=== PATIENT | female | born 1970 | race Caucasian/White ===

== ENCOUNTER 2020-03-30 15:40 | Emergency (ER) | payer BC ==
--- OUTSIDE RECORDS SUMMARY | 2020-03-30 15:42 | XMS REPORT | Clinical Summary ---
:1970 Author Organization [facility] Address [address] [place] [id number] Care Team Providers Name Role Phone Asked, No Pcp Primary Care Provider Unavailable Allergies Active Allergy Reactions Severity Noted Date Comments Sulfa (Sulfonamide Antibiotics) Rash High 1 Medications Medication Sig Dispensed Refills Start Date End Date Status lisinopriL-hydrochlorothiazide 0 1 Active (PRINZIDE) 20-12.5 mg per tablet Active Problems Problem Noted Date Lightheadedness 03/22/2020 Palpitation 03/22/2020 Encounters Date Type Specialty Care Team Description 03/22/2020 Office Visit Cardiology Yusuf Tate MD Lighthea dedness (Primary Dx); Palpitation 03/22/2020 Travel 03/14/2020 Travel after 03/30/2019 Medical History Medical History Date Comments Hypertension Family History Medical History Relation Name Comments Coronary artery disease Father Relation Name Status Comments Father Social History Tobacco Use Types Packs/Day Years Used Date Never Smoker Smokeless Tobacco: Never Used Alcohol Use Drinks/Week oz/Week Comments Not Currently Sex Assigned at Date Recorded Not on file COVID-19 Exposure Response Date Recorded In the last month, have you been in contact with No / Unsure 03/22/2020 1:47 PM 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 Last Filed Vital Signs Vital Sign Reading Time Taken Comments Blood Pressure 142/81 03/22/2020 2:00 PM TILE FINISHER Pulse 77 03/22/2020 2:00 PM TILE FINISHER Temperature - - Respiratory Rate - - Oxygen Saturation - - Inhaled Oxygen Concentration - - Weight 101 kg (223 lb) 03/22/2020 2:00 PM TILE FINISHER Height 170.2 cm (5' 7") 03/22/2020 2:00 PM TILE FINISHER Body Mass Index 34.93 03/22/2020 2:00 PM TILE FINISHER Plan of Treatment Health Maintenance Due Date Last Done Comments COVID-19 VACCINE (1 of 2) 1984 CERVICAL CANCER SCREENING 01/20/1989 BREAST CANCER SCREENING 01/20/2018 COLONOSCOPY SCREENING 01/20/2018 SHINGLES VACCINES (#1) 01/20/2018 INFLUENZA VACCINE 10/17/2019 Procedures Procedure Name Priority Date/Time Associated Diagnosis Comme nts ECG 12-LEAD Routine 03/22/2020 2:09 PM Lightheadedness Resul ts for this TILE FINISHER procedure are i n the results section . after 03/30/2019 Results ECG 12 lead (03/22/2020 2:09 PM TILE FINISHER) Pathologist Sig nature Ventricular rate 71 [facility] Atrial rate 71 [facility] CA interval 180 [facility] QRSD interval 86 [facility] QT interval 358 [facility] QTC interval 389 [facility] P axis 1 62 [facility] QRS axis 1 91 [facility] T wave axis 51 [facility] EKG impression Normal sinus [facility] rhythm- Specimen Narrative Performed At This result has an attachment that is no t available. Performing Organization Address City/State/ZIP Code Phon e Number [facility] M[facility] [address] [place] [address] after 03/30/2019 Advance Directives For more information, please contact: [phone] Type Date Recorded Patient Safety Council Director Explanati on Advance Directives, Living Will and Medical Power of Bridge Engineer
--- OUTSIDE RECORDS SUMMARY | 2020-03-30 15:42 | XMS REPORT | Continuity of Care Document ---
:1970 Author Organization [facility] Address [address] [place] [address] Care Team Providers Name Role Phone Asked, Pcp Primary Care Physician Unavailable Lu Prince DO Attending Clinician Colton Tate MD Attending Clinician Briseyda CONN Attending Clinician Payers Payer Name Policy Type Policy Effective Date Expiration Date Sour ce Number BCBSBCBS CHOICE [id number] 2019 [place] PPO/FEDERAL 00:00:00 [place] [employer] [id number] 2019-Presen tPPO Problems Condition Condition Condition Status Onset Resolution Last Treating Co mments Source Name Details Category Date Date Treatment Clinician Date Lightheade Lightheade Disease Active H shanda dness dness 05 [facility] 00:00: st 00 Palpitatio Palpitatio Disease Active H shanda n n -05 [facility] 00:00: st 00 Allergies, Adverse Reactions, Alerts Allergy Allergy Status Severity Reaction(s) Onset Inactive Treating Comm ents Source Name Type Date Date Clinician Sulfa Propensi Active Rash [place] (Sulfona ty to 05 [facility]i mide adverse 00:00: st Antibiot reaction 00 ics) s to drug Family History Family Member Diagnosis Comments Start Date Stop Date Source Natural father Coronary artery [place] [facility] disease Social History Social Habit Start Date Stop Date Quantity Comments Source Sex Assigned At [place] M ethodist Exposure to Not sure [place] Metho dist SARS-CoV-2 (event) Tobacco use and 2020-03-22 2020-03-22 Never used See [place] ethodist exposure 00:00:00 00:00:00 Alcohol intake 2020-03-22 2020-03-22 Ex-drinker [facility] thodist 00:00:00 00:00:00 (finding) Smoking Status Start Date Stop Date Source Never smoker See Childressis t Medications Ordered Filled Start Stop Current Ordering Indication Dosage Frequency Signature Comments Components Source Medication Medication Date Date Medication? Clinician (SIG) Name Name lisinopriL- Yes Anandto n hydrochloro 1-03 [facility] thiazide 00:00: st (PRINZIDE) 00 20-12.5 mg per tablet Vital Signs Vital Name Observation Time Observation Value Comments Source Systolic blood 2020-03-22 14:00:00 142 mm[Hg] [place] [facility] pressure Diastolic blood 2020-03-22 14:00:00 81 mm[Hg] [place] [facility] pressure Heart rate 2020-03-22 14:00:00 77 /min [facility] Body height 2020-03-22 14:00:00 170.2 cm [place] [facility] Body weight 2020-03-22 14:00:00 101.152 kg [place] [facility] BMI 2020-03-22 14:00:00 34.93 kg/m2 [place] [facility] Procedures Procedure Date / Time Performed Performing Clinician Chantal lozada ECG 12-LEAD 2020-03-22 14:09:45 Yusuf Tate odbisi Plan of Care Planned Activity Planned Date Details Comments Source Future Scheduled 2019-10-17 INFLUENZA VACCINE [place] [facility] Test 00:00:00 [code = INFLUENZA VACCINE] Future Scheduled 2018-01-20 BREAST CANCER [facility] thodist Test 00:00:00 SCREENING [code = BREAST CANCER SCREENING] Future Scheduled 2018-01-20 COLONOSCOPY SCREENING [facility] Test 00:00:00 [code = COLONOSCOPY SCREENING] Future Scheduled 2018-01-20 SHINGLES VACCINES [place] [facility] Test 00:00:00 (#1) [code = SHINGLES VACCINES (#1)] Future Scheduled 1989-01-20 Screening for [facility] thodist Test 00:00:00 malignant neoplasm of cervix (procedure) [code = 109977642] Future Scheduled 1984 COVID-19 VACCINE ([place] [facility] Test 00:00:00 of 2) [code = COVID-19 VACCINE (1 of 2)] Encounters Start End Encounter Admission Attending Care Care Encounter Source Date/Time Date/Time Type Type Clinicians Facility Department ID 2020-03-25 2020-03-26 Emergency S[facility] [id number] 23:11:00 00:43:00 Addis Gold [id number] [place] [id number] [place] [id number] 2020-03-22 2020-03-22 Outpatient [facility] [id number] [place] 00:00:00 00:00:00 YUSUF Bauer [facility] 2020-03-10 2020-03-10 Emergency [facility] [id number] 21:24:00 23:43:00 Charlie Gold [id number] [place] [id number] [place] [id number] Results Test Description Test Time Test Comments Results Result Comments Source ECG 12 lead 2020-03-22 22:59:11 Test Item Value Reference Range Interpretation Comme nts Ventricular rate (test code = 253) 71 Atrial rate (test code = 255) 71 IN interval (test code = 266) 180 QRSD interval (test code = 260) 86 QT interval (test code = 264) 358 QTC interval (test code = 265) 389 P axis 1 (test code = 267) 62 QRS axis 1 (test code = 268) 91 T wave axis (test code = 270) 51 EKG impression (test code = 273) Normal sinus rhythm- See Antony
--- OUTSIDE RECORDS SUMMARY | 2020-03-30 15:42 | XMS REPORT | Summary of Care ---
:1970 Author Organization [facility] - [facility] Address [address] [place] [id number] Care Team Providers Name Role Phone Pipo Galarza DO Primary Care Provider Reason for Visit Reason Comments Dizziness "shakiness" Palpitations Nausea decreased apitite Numbness left arm Encounter Details Date Type Department Care Team Description 03/25/2020 - Emergency ADC-Emergency Addis Prince Lighthe aded (Primary 03/26/2020 Department DO Dx) [address] [place] [address] [place] [address] [phone] Allergies Active Allergy Reactions Severity Noted Date Comments Sulfa (Sulfonamide Antibiotics) Hives Medium documented as of this encounter (statuses as of 03/26/2020) Medications Medication Sig Dispensed Refills Start Date End Date Status lisinopriL 20 mg tablet Take 20 mg by 0 Active mouth daily. documented as of this encounter (statuses as of 03/26/2020) Active Problems No known active problemsdocumented as of this encounter (statuses as of 03/26/2020) Social History Tobacco Use Types Packs/Day Years Used Date Never Assessed Sex Assigned at Date Recorded Not on file COVID-19 Exposure Response Date Recorded In the last month, have you been in contact with No / Unsure 03/25/2020 10:41 PM CHAIN HOIST OPERATOR someone who was confirmed or suspected to have Coronavirus / COVID-19? documented as of this encounter Last Filed Vital Signs Vital Sign Reading Time Taken Comments Blood Pressure 114/78 03/26/2020 12:38 AM CHAIN HOIST OPERATOR Pulse 71 03/26/2020 12:38 AM CHAIN HOIST OPERATOR Temperature 36.2 C (97.1 F) 03/26/2020 12:38 AM CHAIN HOIST OPERATOR Respiratory Rate 18 03/26/2020 12:38 AM CHAIN HOIST OPERATOR Oxygen Saturation 98% 03/26/2020 12:38 AM CHAIN HOIST OPERATOR Inhaled Oxygen Concentration - - Weight 99.8 kg (220 lb) 03/25/2020 10:47 PM CHAIN HOIST OPERATOR Height 170.2 cm (5' 7") 03/25/2020 10:47 PM CHAIN HOIST OPERATOR Body Mass Index 34.46 03/25/2020 10:47 PM CHAIN HOIST OPERATOR documented in this encounter Discharge Instructions Addis Harris, - 1DIAGNOSIS 1. Lightheaded NO LIFE-THREATENING FINDINGS ON TODAY'S EXAM. PROCEDURES IN THE ER TODAY: Blood work MEDICATIONS ADMINISTERED IN THE ER TODAY: IV fluids YOUR PRESCRIPTIONS AND [id number] MEDICATION RECOMMENDATIONS: Please stop your steroids as they may be a cause of your symptoms. SPECIAL CARE INSTRUCTIONS: You will need to follow-up with your PCP next week. FOLLOW-UP RECOMMENDATIONS: RECOMMEND FOLLOW-UP WITH A PRIMARY CARE PROVIDER OR SPECIALIST IN 2-5 DAYS, ESPECIALLY IF NO IMPROVEMENT IN SYMPTOMS. TO FOLLOW-UP WITHIN THE [facility], TRY THESE OPTIONS (CLINIC APPOINTMENTS AVAILABLE ON LRSE-BX-AESS BASIS): 1. SCHEDULE AN APPOINTMENT ONLINE AT [email or web address] 2. OR CALL THE [facility] AT OR 3. OR CALL YOUR [facility] PHYSICIAN'S OFFICE DIRECTLY IF YOU ARE ALREADY AN ESTABLISHED [facility] PATIENT. OR, YOU MAY FOLLOW-UP WITH A PROVIDER OF YOUR CHOICE, SUCH : 1. A PHYSICIAN OF YOUR CHOICE 2. [facility], . LOCATIONS IN [facility] 3. [facility], [address], [place]; [phone] RETURN TO ER FOR WORSENING OF SYMPTOMS. AttachmentsThe following attachments cannot be sent through Care Everywhere. Dizziness, Uncertain Cause (Belarusian)documented in this encounter ED Notes Coral Rao RN - 03/26/2020 12:04 AM CST Patient resting comfortably at this time awaiting provider re-eval and plan. Report given to Arnulfo Young RN Vitals: 03/25/20 2247 03/26/20 0001 BP: (!) 136/94 125/85 Pulse: 74 69 Resp: 18 20 Temp: 37.1 C (98.7 F) TempSrc: Oral SpO2: 98% 98% Weight: 99.8 kg (220 lb) Height: 1.702 m (5' 7") Coral Cadena RN - 03/25/2020 10:41 PM CSTPatient with dizziness, palpitations, nausea, decreased apetitie, feeling like she might pass out, and intermittent left arm numbness for about 3 weeks. She was initially seen here with a negative workup and told to follow-up with [facility] which she did & they stated everything looked good. Got covid tested earlier this week just to check and got negative results yesterday but dx with a sinus infection given steroid shot, course of steroids to take at home, and a Z-park yesterday. She is coming in tonight because symptoms have been worse today than they have been the entire 3 weeks and she feels like she might pass out. 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 Has had this feeling on and off since before marly. Seen 03/10 for the same and went home. Did f/u with cardiology and no cause found. No cp or sob. No cough or URI sx. Did have some facial pressure/congestion and seen by her PCP yesterday and given steroid and antibiotic shot and went home with rx for same for sinusitis. States feels worse today. No sinus pressure/congestion today. Has h/o htn. No h/o lipids or dm. Does not smoke. Nausea but no vomiting. Has been able to eat. Had a negative covid test the other day at OSH. No sick contacts. Here for eval. Past Medical History/Immunizations: History reviewed. No pertinent past medical history. Tetanus received in last 5 years: Unknown Allergies: Allergies Allergen Reactions Sulfa (Sulfonamide Antibiotics) Hives Past Social History: Substance & Sexual Activity No substance use or sexual activity history on file. Past Surgical History: History reviewed. No pertinent surgical history. Review of Systems: Review of Systems Constitutional: Negative for chills and fever. Respiratory: Negative for cough and shortness of breath. Cardiovascular: Negative for chest pain. Gastrointestinal: Positive for nausea. Negative for abdominal pain and vomiting. Genitourinary: Negative for dysuria. Musculoskeletal: Negative for arthralgias, neck pain and neck stiffness. Skin: Negative for wound. Neurological: Positive for light-headedness. Negative for dizziness. Psychiatric/Behavioral: Negative for agitation. Physical Exam: ED Triage Vitals [03/25/207] Weight 99.8 kg (220 lb) Actual or estimated Estimated by patient/family report Height 1.702 m (5' 7") BP (!) 136/94 Pulse 74 Resp 18 Temp 37.1 C (98.7 F) Temp source Oral SpO2 98 % Measured on Room air Physical Exam Vitals signs and nursing note reviewed. Constitutional: Appearance: Normal appearance. HENT: Head: Normocephalic and atraumatic. Mouth/Throat: Mouth: Mucous membranes are dry. Neck: Musculoskeletal: Neck supple. Cardiovascular: Rate and Rhythm: Normal rate and regular rhythm. Pulmonary: Effort: Pulmonary effort is normal. No respiratory distress. Abdominal: General: There is no distension. Palpations: Abdomen is soft. There is no mass. Tenderness: There is no abdominal tenderness. There is no guarding. Musculoskeletal: Normal range of motion. Skin: General: Skin is warm and dry. Neurological: General: No focal deficit present. Mental Status: She is alert and oriented to person, place, and time. 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 Lab Results (24h): Recent Results (from the past 24 hour(s)) CBC with Differential Collection Time: 03/25/20 11:17 PM Result Value Ref Range WBC 11.36 (H) 4.30 - 11.10 10*3/L RBC 5.00 3.93 - 5.25 10*6/L HGB 12.9 11.6 - 15.0 g/dL HCT 40.3 35.7 - 45.2 % MCV 80.6 80.6 - 95.5 fL MCH 25.8 (L) 25.9 - 32.8 pg MCHC 32.0 31.6 - 35.1 g/dL RDW-SD 39.8 39.0 - 49.9 fL RDW-CV 13.6 12.0 - 15.5 % PLT 285 166 - 358 10*3/L MPV 10.5 9.5 - 12.9 fL NRBC/100 WBC 0.0 0.0 - 10.0 /100 WBCs NRBC x10^3 <0.01 10*3/L GRAN MAT (NEUT) % 77.5 % IMM GRAN % 0.40 % LYMPH % 16.3 % MONO % 5.2 % EOS % 0.2 % BASO % 0.4 % GRAN MAT x10^3(ANC) 8.81 (H) 1.88 - 7.09 10*3/uL IMM GRAN x10^3 0.05 0.00 - 0.06 10*3/uL LYMPH x10^3 1.85 1.32 - 3.29 10*3/uL MONO x10^3 0.59 0.33 - 0.92 10*3/uL EOS x10^3 <0.03 (L) 0.03 - 0.39 10*3/uL BASO x10^3 0.04 0.01 - 0.07 10*3/uL Basic Metabolic Panel (NA, K, CL, CO2, GLUCOSE, BUN, CREATININE, CA) Collection Time: 03/25/20 11:17 PM Result Value Ref Range NA 135 135 - 145 mmol/L K 4.1 3.5 - 5.0 mmol/L CL 101 98 - 108 mmol/L CO2 TOTAL 23 23 - 31 mmol/L AGAP 11 2 - 16 BUN 24 (H) 7 - 23 mg/dL GLUCOSE 154 (H) 70 - 110 mg/dL CREATININE 0.80 0.50 - 1.04 mg/dL CALCIUM 9.5 8.6 - 10.6 mg/dL eGFR Calculation (Non-) 75.3 mL/min/1.73m2 eGFR Calculation () 91.3 mL/min/1.73m2 Hepatic Function Panel (ALB, T.PRO, BILI T, BU/BC, ALT, AST, ALK PHOS) Collection Time: 03/25/20 11:17 PM Result Value Ref Range TOTAL BILI 0.6 0.1 - 1.1 mg/dL BILI UNCON 0.5 0.1 - 1.1 mg/dL BILI CONJ 0.0 0.0 - 0.3 mg/dL T PROTEIN 7.2 6.3 - 8.2 g/dL ALBUMIN 4.5 3.5 - 5.0 g/dL ALK PHOS 52 34 - 122 U/L ALTv 19 5 - 35 U/L AST(SGOT) 21 13 - 40 U/L Troponin I Collection Time: 03/25/20 11:17 PM Result Value Ref Range TROPONIN I <0.012 <=0.034 ng/mL MAGNESIUM Collection Time: 03/25/20 11:17 PM Result Value Ref Range MAGNESIUM 2.2 1.7 - 2.4 mg/dL Orders and Treatments: Orders Placed This Encounter Procedures CBC with Differential Basic Metabolic Panel (NA, K, CL, CO2, GLUCOSE, BUN, CREATININE, CA) Hepatic Function Panel (ALB, T.PRO, BILI T, BU/BC, ALT, AST, ALK PHOS) Troponin I MAGNESIUM Orders Placed This Encounter Medications lisinopriL 20 mg tablet NaCl 0.9% (NS) bolus infusion 1,000 mL ED COURSE patient presents for eval for feeling lightheaded on and off since before marly. States worse today. Started on antibiotics and steroids for a sinus infection yesterday. No vomiting. Some nausea. No abd pain. No cp or sob. No syncope. Sx can occur while sitting or standing. VSS here in the EC. Dry MM. Abdomen soft and not tender. No focal neuro deficits. Will check labs and give IV fluids. Had normal TSH when seen here on 03/10. Anticipate discharge home later on. 0030 - labs ok. Patient feeling maybe a little better. Is able to get up and ambulate around the room. She is newly on steroids for a sinus infection. Recommend she stop the steroids and f/u with her PCP next week. Stable here in the EC and is ok for discharge home with PCP f/u. MDM: Coding Scoring Tools: No data recorded Diagnosis/Impression: ICD-10-CM ICD-9-CM 1. Lightheaded R42 780.4 Disposition/Condition: ED Disposition ED Disposition Condition Comment Disch - Home Stable Discharge Medications: Patient's Medications START taking these medications No medications on file CONTINUE taking these medications which have NOT CHANGED LISINOPRIL 20 MG TABLET Take 20 mg by mouth daily. START taking Modified Medications as Prescribed No medications on file STOP taking these medications No medications on file Follow-up: Electronically signed by: Addis Prince DO 03/25/2020 11:14 PM N HOIST OPERATOR documented in this encounter Miscellaneous Notes ED Nurse Note - Verito Young RN - 03/26/2020 12:42 AM CHAIN HOIST OPERATOR Awake, alert oriented X4, respiratory even and unlabored,skin w/d color appropriate for race, movesall ext well, pt encouraged to follow up with pcp and or return as needed Pt given printed and verbal discharge instructions regarding Lightheaded , patient verbralized understanding and signature obtained, patient denies any other concerns. Advised to seek medical attention for new/prolonged/worsening of symptoms, No adverse reaction to meds given in ER noted upon discharge Pt ambulated to the lobby with steady gait documented in this encounter Plan of Treatment Health Maintenance Due Date Last Done Comments Depression Screening 1980 DTaP,Tdap,and Td Vaccines (1 - 01/20/1987 Tdap) PAP SMEAR 01/20/1989 Breast Cancer Screening (MAMMOGRAM) 2008 COLON CANCER SCREENING ANNUAL 01/20/2018 FIT/FOBT COLON CANCER SCREENING FIT DNA 01/20/2018 EVERY 3 YEARS COLON CANCER SCREENING 01/20/2018 SIGMOIDOSCOPY EVERY 5 YEARS COLONOSCOPY 01/20/2018 Colorectal Cancer Screening 01/20/2018 Zoster Recombinant Vaccine 01/20/2018 (SHINGRIX) (1 of 2) INFLUENZA VACCINE (#1) 2019 PNEUMOCOCCAL 0-64 YEARS COMBINED Aged Out No longer eligible based on SERIES patient's age to complete this topic documented as of this encounter Procedures Procedure Name Priority Date/Time Associated Diagnosis Comme nts CBC WITH DIFF STAT 03/25/2020 11:17 PM Lightheaded Results for this CHAIN HOIST OPERATOR procedure are i n the results section. BASIC METABOLIC STAT 03/25/2020 11:17 PM Lightheaded Resul ts for this PANEL (NA, K, CL, CHAIN HOIST OPERATOR procedure are in CO2, GLUCOSE, BUN, the resul ts CREATININE, CA) section. HEPATIC FUNCTION STAT 03/25/2020 11:17 PM Lightheaded Resu lts for this PANEL ([id number]) CHAIN HOIST OPERATOR procedure are in (ALB,T.PRO,BILI the results T,BU/BC,ALT,AST,ALK section. PHOS) TROPONIN I STAT 03/25/2020 11:17 PM Lightheaded Results for this CHAIN HOIST OPERATOR procedure are i n the results section. MAGNESIUM STAT 03/25/2020 11:17 PM Lightheaded Results for this CHAIN HOIST OPERATOR procedure are i n the results section. NOTICE OF PRIVACY Routine 03/25/2020 10:36 PM PRACTICES CHAIN HOIST OPERATOR CONSENT/REFUSAL FOR Routine 03/25/2020 10:35 PM DIAGNOSIS AND CHAIN HOIST OPERATOR TREATMENT documented in this encounter Results MAGNESIUM (03/25/2020 11:17 PM CHAIN HOIST OPERATOR) Pathologist Sig nature MAGNESIUM 2.2 1.7 - 2.4 mg/dL [facility] Specimen Blood - VENOUS Performing Organization Address City/State/Zipcode Phone Number [facility] CLIA: [id number] [place], [place] [id number] [address] Troponin I (03/25/2020 11:17 PM CHAIN HOIST OPERATOR) Pathologist Sig nature TROPONIN I <0.012 <=0.034 ng/mL [facility] Specimen Blood - VENOUS Narrative Performed At Equal or Less than 0.034 ng/ml---Normal [facility] Note: Cardiac troponin begins to rise 3-4 hours after the onset of ischemia. Repeat in 4-6 hours if the sample was drawn within 3-4 hours of the onset of the symptom and found normal. Between 0.035 and 0.120 ng/mL--- Borderline. Questionable myocardial injury or necros is Note: Serial measurement may be necessary to confirm or exclude the diagnosis of myocardial injury or necrosis; Clinical correlation (symptoms, EKGs, imaging studies, and others) required; Repeat in 4-6 hours if clinically indicated. Equal or Higher than 0.121 ng/mL---Abnormal. Myocardial Injury or Necrosis Likely Biotin has been reported to cause a negative bias, interpret results relative to patient's use of biotin. Performing Organization Address [facility] Phone Number [facility] CLIA: [id number] [place] [address] [place] [address] Hepatic Function Panel (ALB, T.PRO, BILI T, BU/BC, ALT, AST, ALK PHOS) (03/25/2020 11:17 PM CHAIN HOIST OPERATOR) Pathologist Sig [facility] TOTAL BILI 0.6 0.1 - 1.1 mg/dL [facility] BILI UNCON 0.5 0.1 - 1.1 mg/dL [facility] BILI CONJ 0.0 0.0 - 0.3 mg/dL [facility] T PROTEIN 7.2 6.3 - 8.2 g/dL [facility] ALBUMIN 4.5 3.5 - 5.0 g/dL [facility] ALK PHOS 52 34 - 122 U/L [facility] ALTv 19 5 - 35 U/L [facility] AST(SGOT) 21 13 - 40 U/L [facility] Specimen Blood - VENOUS Performing Organization Address [facility] Phone Number [facility] CLIA: [id number] [place] [address] LABORATORY [address] [facility] Basic Metabolic Panel (NA, K, CL, CO2, GLUCOSE, BUN, CREATININE, CA) (03/25/2020 11:17 PM CHAIN HOIST OPERATOR) [facility] NA 135 135 - 145 [facility] mmol/L [facility] K 4.1 3.5 - 5.0 [facility] mmol/L [facility] CL 101 98 - 108 mmol/L [facility] CO2 TOTAL 23 23 - 31 mmol/L [facility] AGAP 11 2 - 16 [facility] BUN 24 (H) 7 - 23 mg/dL [facility] GLUCOSE 154 (H) 70 - 110 mg/dL [facility] CREATININE 0.80 0.50 - 1.04 [facility] mg/dL [facility] CALCIUM 9.5 8.6 - 10.6 [facility] mg/dL [facility] eGFR Calculation 75.3 mL/min/1.73m2 [facility] ([facility] [place]) eGFR Calculation 91.3 mL/min/1.73m2 [facility] () [facility] Specimen Blood - VENOUS Narrative Performed At Association of Glomerular Filtration Rate (GFR) [facility] and Staging of Kidney Disease* + + +- + | GFR (mL/min/1.73 m2) | With Kidney Damage | Without Kidney Damage + + +- + | >90 | Stage one | Normal + + +- + | 60-89 | Stage two | Decreased GFR + + +- + | 30-59 | Stage three | Stage three + + +- + | 15-29 | Stage four | Stage four + + +- + | <15 (or dialysis) | Stage five | Stage five + + +- + *Each stage assumes the associated GFR level has been in effect for at least three months. Stages 1 to 5, with or without kidney disease, indicate chronic kidney disease. Notes: Determination of stages one and two (with eGFR >59mL/min/1.73 m2) requires estimation of kidney damage for at least three months as defined by structural or functional abnormalities of the kidney, manifested by either: Pathological abnormalities or Markers of kidney damage (including abnormalities in the composition of the blood or urine or abnormalities in imaging tests). Performing Organization Address City/State/Zipcode Phone Number [facility] CLIA: [id number] [place] [address] CBC with Differential (03/25/2020 11:17 PM CHAIN HOIST OPERATOR) [facility] nature WBC 11.36 (H) 4.30 - 11.10 [facility] 10*3/L [facility] RBC 5.00 3.93 - 5.25 [facility] 10*6/L [facility] HGB 12.9 11.6 - 15.0 [facility] g/dL [facility] HCT 40.3 35.7 - 45.2 % [facility] MCV 80.6 80.6 - 95.5 fL [facility] MCH 25.8 (L) 25.9 - 32.8 pg [facility] MCHC 32.0 31.6 - 35.1 [facility] g/dL [facility] RDW-SD 39.8 39.0 - 49.9 fL [facility] RDW-CV 13.6 12.0 - 15.5 % [facility] PLT 285 166 - 358 [facility] 10*3/L [facility] MPV 10.5 9.5 - 12.9 fL [facility] NRBC/100 WBC 0.0 0.0 - 10.0 /100 [facility] WBCs [facility] NRBC x10^3 <0.01 10*3/L [facility] GRAN MAT (NEUT) % 77.5 % [facility] IMM GRAN % 0.40 % [facility] LYMPH % 16.3 % [facility] MONO % 5.2 % [facility] EOS % 0.2 % [facility] BASO % 0.4 % [facility] GRAN MAT x10^3(ANC) 8.81 (H) 1.88 - 7.09 [facility] 10*3/uL [facility]PITAL [facility] IMM GRAN x10^3 0.05 0.00 - 0.06 [facility] 10*3/uL [facility] LYMPH x10^3 1.85 1.32 - 3.29 [facility] 10*3/uL [facility] MONO x10^3 0.59 0.33 - 0.92 [facility] 10*3/uL [facility] EOS x10^3 <0.03 (L) 0.03 - 0.39 [facility] 10*3/uL [facility] BASO x10^3 0.04 0.01 - 0.07 [facility] 10*3/uL [facility] Specimen Blood - VENOUS Performing Organization Address City/State/Zipcode Phone Number [facility] CLIA: [id number] [place] [address] documented in this encounter Visit Diagnoses Diagnosis Lightheaded - Primary Dizziness and giddiness documented in this encounter Administered Medications Medication Order MAR Action Action Date Dose Rate Site NaCl 0.9% (NS) bolus New Bag 03/25/2020 11:21 PM CHAIN HOIST OPERATOR 1,000 mL 99 9 mL/hr infusion 1,000 mL at 999 mL/hr, 1,000 mL, IV Infusion, ONCE, 1 dose, Sat03/25/20 at 2315, JAYE documented in this encounter Insurance Payer Benefit Plan Subscriber ID Effective Dates Phone Address Type / Group [facility] [id number] 2019-Krysta [phone] [address] PPO/POS [place] [id number] [place] [address] Guarantor Name Account Type Relation to Date of Phone Bill ing Patient Address Radha Aguirre Personal/Family Self 1970 [address] (Home) [place] [phone] [place] [address] (Work) documented as of this encounter
--- OUTSIDE RECORDS SUMMARY | 2020-03-30 15:42 | XMS REPORT | Summary of Care ---
:1970 Author Organization [facility] Address [address] [place] [id number] Care Team Providers Name Role Phone Pipo Galarza DO Primary Care Provider Reason for Referral (Routine) Status Reason Specialty Diagnoses / Referred By Referred To Procedures Contact Contact New Request IM-CLINICAL CARDIAC Diagnoses Palpitations Briseyda, ELECTROPHYSIOLOGY Procedures Discharge Follow-Up: Specialty Service IM-CLINICAL CARDIAC ELECTROPHYSIOLOGY; 3- 5 Days Cynise, DENTAL EQUIPMENT MECHANIC [address] [place] [address] Radiology Services (STAT) Status Reason Specialty Diagnoses / Referred By Referred To Procedures Contact Contact New Request Diagnostic Diagnoses Palpitations Briseyda, Cynise, Radiology Procedures XR CHEST 1 VW DENTAL EQUIPMENT MECHANIC [address] [facility] [address] [place] [address] Reason for Visit Reason Comments Dizziness Auth/Cert Status Reason Specialty Diagnoses / Referred By Referred To Procedures Contact Contact Emergency Medicine [facility] Em ergency Dept [address] [place] [phone] Fax: Encounter Details Date Type Department Care Team Description 03/10/2020 Emergency ADC-Emergency Briseyda, Cynise, Palpitation s (Primary Department DENTAL EQUIPMENT MECHANIC Dx) [address] [place] [address] Dr mason [address] [place] [address] [address] [place] [id number] [phone] Allergies No Known Allergiesdocumented as of this encounter (statuses as of 03/10/2020) Medications Not on filedocumented as of this encounter (statuses as of 03/10/2020) Active Problems Not on filedocumented as of this encounter (statuses as of 03/10/2020) Social History Tobacco Use Types Packs/Day Years Used Date Never Assessed Sex Assigned at Date Recorded Not on file COVID-19 Exposure Response Date Recorded In the last month, have you been in contact with No / Unsure 03/10/2020 9:38 PM STRIKE OFF MACHINE OPERATOR someone who was confirmed or suspected to have Coronavirus / COVID-19? documented as of this encounter Last Filed Vital Signs Vital Sign Reading Time Taken Comments Blood Pressure 109/79 03/10/2020 10:52 PM STRIKE OFF MACHINE OPERATOR Pulse 71 03/10/2020 10:52 PM STRIKE OFF MACHINE OPERATOR Temperature 37.2 C (99 F) 03/10/2020 9:39 PM STRIKE OFF MACHINE OPERATOR Respiratory Rate 18 03/10/2020 10:52 PM STRIKE OFF MACHINE OPERATOR Oxygen Saturation 97% 03/10/2020 10:52 PM STRIKE OFF MACHINE OPERATOR Inhaled Oxygen Concentration - - Weight 102.1 kg (225 lb) 03/10/2020 9:39 PM STRIKE OFF MACHINE OPERATOR Height 170.2 cm (5' 7") 03/10/2020 9:39 PM STRIKE OFF MACHINE OPERATOR Body Mass Index 35.24 03/10/2020 9:39 PM STRIKE OFF MACHINE OPERATOR documented in this encounter Discharge Instructions InstructionsCharlie Rain FNP - 03/10/2020Avoid any caffeine, energy drinks, supplement or weight loss pills until you follow-up with Cardiology service. Your blood glucose was noted to be elevated. Discuss this with your Primary Care Physician to determine if you need to be started on medications. AttachmentsThe following attachments cannot be sent through Care Everywhere. Palpitations (Fijian)documented in this encounter ED Notes Verito Young RN - 03/10/2020 9:25 PM CSTC/o lightlessness, palpation, nausea, on and off since Saturday. Charlie Jurado FNP - 03/10/2020 9:22 PM CST [facility] Emergency Department Note Patient Name: Radha Aguirre Date of : 1970 50 year old female Treatment Room: TX5/SC5 Patient Escorted by: Family [5] Mode of Arrival: Personal means [1] EMS Treatment Prior to ED Arrival: none Primary Care Physician: Pipo Galarza Chief Complaint: Chief Complaint Patient presents with Dizziness Past Medical History: No past medical history on file. Past Surgical History: No past surgical history on file. Past Social History: Substance & Sexual Activity No substance use or sexual activity history on file. Immunizations: Allergies: No Known Allergies History of Present Illness: HX: HTN Meds: lisinopril- HCTZ SX: PCP: Reggie Denies smoking, drinking, drug abuse History provided by: Patient official court interpreter used: No Palpitations Palpitations quality: Fast Onset quality: Sudden Duration: unable to specify. Timing: Intermittent Progression: Unchanged Chronicity: New Context: not appetite suppressants, not illicit drugs and not stimulant use Caffeine: only drinks 1cup per day. Context comment: Patient is a 50yo female hx HTN, that presents to ER with c/o palpitations and lightheadedness x4 days. States symptoms come and go. Currently not having any symptoms. Relieved by: Nothing Worsened by: Nothing Ineffective treatments: None tried Associated symptoms: dizziness (described as lightheadedness) and malaise/fatigue Associated symptoms: no chest pain, no chest pressure, no cough, no lower extremity edema, no near-syncope, no shortness of breath, no syncope, no vomiting and no weakness Risk factors: no diabetes mellitus, no hx of atrial fibrillation, no hx of DVT, no hx of PE, no hx of thyroid disease, no hyperthyroidism and no stress of note, patient did not on Saturday that her BP was low. She has only been taking 1/2 of her dose with improvement in her BP. Review of Systems: Review of Systems Constitutional: Positive for malaise/fatigue. HENT: Negative. Eyes: Negative. Respiratory: Negative. Negative for cough and shortness of breath. Breasts: Negative. Cardiovascular: Positive for palpitations. Negative for chest pain, syncope and near-syncope. Gastrointestinal: Negative. Negative for vomiting. Genitourinary: Negative. Musculoskeletal: Negative. Skin: Negative. Neurological: Positive for dizziness (described as lightheadedness) and light- headedness. Negative for weakness. Psychiatric/Behavioral: Negative. ED Triage Vitals Weight 03/10/20 2131 102.1 kg (225 lb) Actual or estimated 03/10/202130 Estimated by patient/family report Height 03/10/202138 1.702 m (5' 7") BP 03/10/202138 136/89 Pulse 03/10/202138 77 Resp 03/10/202138 18 Temp 03/10/202138 37.2 C (99 F) Temp src -- SpO2 03/10/202138 97 % Measured on 03/10/202138 Room air Physical Exam: Physical Exam Vitals signs and nursing note reviewed. Constitutional: General: She is not in acute distress. Appearance: Normal appearance. She is well-developed. She is obese. She is not ill-appearing or toxic-appearing. HENT: Head: Normocephalic and atraumatic. Right Ear: External ear normal. Left Ear: External ear normal. Nose: Nose normal. Mouth/Throat: Mouth: Mucous membranes are moist. Eyes: General: Right eye: No discharge. Left eye: No discharge. Pupils: Pupils are equal, round, and reactive to light. Neck: Musculoskeletal: Normal range of motion and neck supple. Cardiovascular: Rate and Rhythm: Normal rate and regular rhythm. Pulses: Normal pulses. Heart sounds: Normal heart sounds. Pulmonary: Effort: Pulmonary effort is normal. No respiratory distress. Breath sounds: Normal breath sounds. No stridor. No wheezing, rhonchi or rales. Abdominal: General: Bowel sounds are normal. There is no distension. Palpations: Abdomen is soft. There is no mass. Tenderness: There is no abdominal tenderness. There is no guarding. Hernia: No hernia is present. Musculoskeletal: Normal range of motion. Right lower leg: No edema. Left lower leg: No edema. Skin: General: Skin is warm and dry. Capillary Refill: Capillary refill takes less than 2 seconds. Neurological: General: No focal deficit present. Mental Status: She is alert and oriented to person, place, and time. Mental status is at baseline. Cranial Nerves: No cranial nerve deficit. Sensory: No sensory deficit. Coordination: Coordination normal. Gait: Gait normal. Psychiatric: Behavior: Behavior normal. Thought Content: Thought content normal. Judgment: Judgment normal. Procedures: See separate note Labs Recent Results (from the past 24 hour(s)) URINALYSIS Collection Time: 03/10/20 9:49 PM Result Value Ref Range APPEARANCE Clear Clear COLOR Yellow Yellow PH 6.0 4.8 - 8.0 SP GRAVITY 1.019 1.003 - 1.030 GLU U QUAL 50 mg/dL (A) Normal BLOOD Negative Negative KETONES Negative Negative PROTEIN Negative Negative UROBILIN Normal Normal BILIRUBIN Negative Negative NITRITE Negative Negative LEUK ROMINA 75/uL (A) Negative RBC/HPF 2 0 - 3 HPF WBC/HPF 5 0 - 5 HPF BACTERIA Few (A) Negative MUCOUS Slight (A) Negative LPF SQ EPITH 7 HPF CBC WITH DIFF Collection Time: 03/10/20 9:49 PM Result Value Ref Range WBC 6.46 4.30 - 11.10 10*3/L RBC 4.82 3.93 - 5.25 10*6/L HGB 12.8 11.6 - 15.0 g/dL HCT 38.9 35.7 - 45.2 % MCV 80.7 80.6 - 95.5 fL MCH 26.6 25.9 - 32.8 pg MCHC 32.9 31.6 - 35.1 g/dL RDW-SD 38.4 (L) 39.0 - 49.9 fL RDW-CV 13.2 12.0 - 15.5 % PLT 281 166 - 358 10*3/L MPV 10.3 9.5 - 12.9 fL NRBC/100 WBC 0.0 0.0 - 10.0 /100 WBCs NRBC x10^3 <0.01 10*3/L GRAN MAT (NEUT) % 59.1 % IMM GRAN % 0.30 % LYMPH % 29.9 % MONO % 7.1 % EOS % 2.8 % BASO % 0.8 % GRAN MAT x10^3(ANC) 3.82 1.88 - 7.09 10*3/uL IMM GRAN x10^3 <0.03 0.00 - 0.06 10*3/uL LYMPH x10^3 1.93 1.32 - 3.29 10*3/uL MONO x10^3 0.46 0.33 - 0.92 10*3/uL EOS x10^3 0.18 0.03 - 0.39 10*3/uL BASO x10^3 0.05 0.01 - 0.07 10*3/uL BASIC METABOLIC PANEL (NA, K, CL, CO2, GLUCOSE, BUN, CREATININE, CA) Collection Time: 03/10/20 9:49 PM Result Value Ref Range NA 137 135 - 145 mmol/L K 3.5 3.5 - 5.0 mmol/L CL 101 98 - 108 mmol/L CO2 TOTAL 27 23 - 31 mmol/L AGAP 9 2 - 16 BUN 17 7 - 23 mg/dL GLUCOSE 216 (H) 70 - 110 mg/dL CREATININE 1.01 0.50 - 1.04 mg/dL CALCIUM 9.5 8.6 - 10.6 mg/dL eGFR Calculation (Non-) 57.6 mL/min/1.73m2 eGFR Calculation () 69.8 mL/min/1.73m2 TROPONIN I Collection Time: 03/10/20 9:49 PM Result Value Ref Range TROPONIN I <0.012 <=0.034 ng/mL THYROID STIMULATING HORMONE Collection Time: 03/10/20 9:49 PM Result Value Ref Range TSH 4.56 0.45 - 4.70 mIU/L X-Rays: Reviewed by in Hospital Encounter on 03/10/20 XR CHEST 1 VW Narrative XR CHEST 1 VW HISTORY: 50 years-old; Female; palpitations COMPARISON: None FINDINGS: The lungs are clear with no focal consolidation. There is no pleural effusion or pneumothorax. The cardiomediastinal silhouette is normal. No acute osseous abnormality is identified. Impression No acute cardiopulmonary abnormality Preliminary Report Dictated by Resident: Alecia Temple I, Semaj Curtis MD., have reviewed this study and agree with the above report. Rhythm Strip: Sinus Rhythm , Rate 82 EKG: reviewed by in and Dr. Thapa Normal axis, Normal intervals, Normal P-waves, Normal QRS complex, Normal sinus rhythm, Normal ST / T waves and Normal 12 - lead EKG Rate 77 Comparison with prior EKG: none available Medical Decision Making DDX: hyperthyroidism, orthostatic hypotension, tachycardia, electrolyte abnormality, NSTEMI Orders: Orders Placed This Encounter Procedures XR CHEST 1 VW URINALYSIS CBC WITH DIFF BASIC METABOLIC PANEL (NA, K, CL, CO2, GLUCOSE, BUN, CREATININE, CA) TROPONIN I THYROID STIMULATING HORMONE Treatment Medications: No orders of the defined types were placed in this encounter. Plan: Patient stable and non-toxic appearing, currently asymptomatic Trop neg, EKG unremarkable, will continue to monitor for episode and further assess labs No leukocytosis noted TSH normal H/H stable Electrolytes normal Glucose slightly elevated, will discuss with patient diet and necessary follow- up regarding this. 10:48 PM Orthostatic VS done and normal L- 109/79 HR-71; Sit- 112/78 HR-76; Standing- 103/83 HR 85 CXR wnl Discussed results with patient. Educated on disharge medications and home management. Advised to follow-up with PCP and Cardiac mine environmental engineer in 2-3 days. Given ER return precautions. Patient/Family verbalized understanding prior to discharge. Diagnosis/Impression: ICD-10-CM ICD-9-CM 1. Palpitations R00.2 785.1 Disposition/Condition: ED Disposition ED Disposition Condition Comment Disch - Home Stable Discharge Medications: none Counseled patient regarding: ER return precautions Critical Care Time: 0 minutes I have considered medical emergencies that could be related to this patient's clinical presentation,including life and limb threatening disease processes. I am unable to find any evidence that one might be present at this time and the patient's condition is stabilized. In my medical judgment, there is no indication for further evaluation, treatment, or admission of the patient. Comprehensive verbal and written discharge and follow up instructions have been provided to the patient and/or family. Electronically signed by: SENIA Felder 03/10/2020 9:28 PM MDM: Coding KE OFF MACHINE OPERATOR Associated attestation - True Thapa DO - 03/10/2020 11:38 PM CSTI was available for consultation at all times during the patient encounter. However, I did not see or evaluate the patient unless otherwise noted. Signature is for administrative purposes and not an endorsement of care provided.documented in this encounter Miscellaneous Notes ED Nurse Note - Verito Young RN - 03/10/2020 11:33 PM STRIKE OFF MACHINE OPERATOR Awake, alert oriented X4, respiratory even and unlabored,skin w/d color appropriate for race, movesall ext well, pt encouraged to follow up with pcp and or return as needed Pt given printed and verbal discharge instructions regarding palpitaions , patient verbralized understanding and signature obtained, patient denies any other concerns. Advised to seek medical attention for new/prolonged/worsening of symptoms, No adverse reaction to meds given in ER noted upon discharge Pt ambulated to the lobby with steady gait ursing Note - Rosita Shi RN - 03/10/2020 10:54 PM CST 03/10/20 2200 03/10/20 2249 03/10/20 2250 Orthostatic Vitals BP 109/79 109/79 112/78 Position Lying Lying Sitting Pulse 71 71 76 03/10/20 2251 Orthostatic Vitals BP 103/82 Position Standing Pulse 85 KE OFF MACHINE OPERATOR documented in this encounter Plan of Treatment Name Type Priority Associated Diagnoses Date/Ti me EKG-12 LEAD ROUTINE HEART STATION STAT Palpitations 020 9:44 PM ONCE STRIKE OFF MACHINE OPERATOR Name Type Priority Associated Diagnoses Order S chedule EKG-12 LEAD ROUTINE HEART STATION STAT Palpitations ONCE fo r 1 Occurrences ONCE starting 2019 until 0 Health Maintenance Due Date Last Done Comments [...] Name Priority Date/Time Associated Diagnosis Comme nts XR CHEST 1 VW STAT 03/10/2020 10:07 Palpitations Results fo r this PM STRIKE OFF MACHINE OPERATOR procedure are i n the results section. URINALYSIS STAT 03/10/2020 9:49 Palpitations Results for this PM STRIKE OFF MACHINE OPERATOR procedure are i n the results section. CBC WITH DIFF STAT 03/10/2020 9:49 Palpitations Results fo r this PM STRIKE OFF MACHINE OPERATOR procedure are i n the results section. BASIC METABOLIC STAT 03/10/2020 9:49 Palpitations Results for this PANEL (NA, K, CL, PM STRIKE OFF MACHINE OPERATOR procedure are in CO2, GLUCOSE, BUN, the resul ts CREATININE, CA) section. THYROID STIMULATING STAT 03/10/2020 9:49 Palpitations Resu lts for this HORMONE PM STRIKE OFF MACHINE OPERATOR procedure are i n the results section. TROPONIN I STAT 03/10/2020 9:49 Palpitations Results for this PM STRIKE OFF MACHINE OPERATOR procedure are i n the results section. NOTICE OF PRIVACY Routine 03/10/2020 9:24 PRACTICES PM STRIKE OFF MACHINE OPERATOR CONSENT/REFUSAL FOR Routine 03/10/2020 9:22 DIAGNOSIS AND PM STRIKE OFF MACHINE OPERATOR TREATMENT documented in this encounter Results XR CHEST 1 VW (03/10/2020 10:07 PM STRIKE OFF MACHINE OPERATOR) Specimen Impressions Performed At PACS/VR/DOSE No acute cardiopulmonary abnormality Preliminary Report Dictated by Resident: Semaj Ho MD., have reviewed this study and agree with the above report. Narrative Performed At This result has an attachment that is no t available. XR CHEST 1 VW PACS/VR/DOSE HISTORY: 50 years-old; Female; palpitations COMPARISON: None FINDINGS: The lungs are clear with no focal consolidation. Ther e is no pleural effusion or pneumothorax. The cardiomediastinal silhouette is normal. No acute osseous abnormality is identified. Procedure Note [facility], Radiant Results Inft User - 2019 10:56 PM STRIKE OFF MACHINE OPERATOR XR CHEST 1 VW HISTORY: 50 years-old; Female; palpitati ons COMPARISON: None FINDINGS: The lungs are clear with no focal conso lidation. There is no pleural effusion or pneumothorax. The cardiomediastinal silhouette is norm al. No acute osseous abnormality is identifi ed. IMPRESSION No acute cardiopulmonary abnormality Preliminary Report Dictated by Resident: Semaj Ho MD., have reviewed th is study and agree with the above report. Performing Organization Address City/State/Zipcode Phone Number PACS/VR/DOSE THYROID STIMULATING HORMONE (03/10/2020 9:49 PM STRIKE OFF MACHINE OPERATOR) Pathologist Sig nature TSH 4.56 0.45 - 4.70 mIU/L [facility] Specimen Blood - VENOUS Performing Organization Address City/State/Zipcode Phone Number [facility] CLIA: [id number] [place], [place] [id number] LABORATORY [address] [facility] TROPONIN I (03/10/2020 9:49 PM STRIKE OFF MACHINE OPERATOR) Pathologist Sig nature TROPONIN I <0.012 <=0.034 ng/mL [facility] Specimen Blood - VENOUS Narrative Performed At Equal or Less than 0.034 ng/ml---Normal [facility] Note: Cardiac troponin begins to rise [...] patient's use of biotin. Performing Organization Address City/State/Zipcode Phone Number [facility] CLIA: [id number] [place] [address] LABORATORY [address] [facility] BASIC METABOLIC PANEL (NA, K, CL, CO2, GLUCOSE, BUN, CREATININE, CA) (03/10/2020 9:49 PM STRIKE OFF MACHINE OPERATOR) Pathologist Sig [place] NA 137 135 - 145 [facility] mmol/L [facility] K 3.5 3.5 - 5.0 [facility] mmol/L [facility] CL 101 98 - 108 mmol/L [facility] CO2 TOTAL 27 23 - 31 mmol/L [facility] AGAP 9 2 - 16 [facility] BUN 17 7 - 23 mg/dL [facility] GLUCOSE 216 (H) 70 - 110 mg/dL [facility] CREATININE 1.01 0.50 - 1.04 [facility] mg/dL [facility] CALCIUM 9.5 8.6 - 10.6 [facility] mg/dL [facility] eGFR Calculation 57.6 mL/min/1.73m2 [facility] (Non- HOSPITAL LABORATORY [place]) eGFR Calculation 69.8 mL/min/1.73m2 [facility] LABORATORY Specimen Blood - VENOUS Narrative Performed At Association of Glomerular Filtration Rate (GFR) [facility] and Staging of Kidney Disease* [...] tests). Performing Organization Address City/State/Zipcode Phone Number [facility] CLIA: [id number] [place] [address] CBC WITH DIFF (03/10/2020 9:49 PM STRIKE OFF MACHINE OPERATOR) [facility] nature WBC 6.46 4.30 - 11.10 [facility] 10*3/L [facility] RBC 4.82 3.93 - 5.25 [facility] 10*6/L [facility] HGB 12.8 11.6 - 15.0 [facility] g/dL [facility] HCT 38.9 35.7 - 45.2 % [facility] MCV 80.7 80.6 - 95.5 fL [facility] MCH 26.6 25.9 - 32.8 pg [facility] MCHC 32.9 31.6 - 35.1 [facility] g/dL [facility] RDW-SD 38.4 (L) 39.0 - 49.9 fL [facility] RDW-CV 13.2 12.0 - 15.5 % [facility] PLT 281 166 - 358 [facility] 10*3/L [facility] MPV 10.3 9.5 - 12.9 fL [facility] NRBC/100 WBC 0.0 0.0 - 10.0 /100 [facility] WBCs HOSPITAL LABORATORY NRBC x10^3 <0.01 10*3/L [facility] GRAN MAT (NEUT) % 59.1 % [facility] IMM GRAN % 0.30 % [facility] LYMPH % 29.9 % [facility] MONO % 7.1 % [facility] EOS % 2.8 % [facility] BASO % 0.8 % [facility] GRAN MAT x10^3(ANC) 3.82 1.88 - 7.09 [facility] 10*3/uL [facility] IMM GRAN x10^3 <0.03 0.00 - 0.06 [facility] 10*3/uL [facility] LYMPH x10^3 1.93 1.32 - 3.29 [facility] 10*3/uL HOSPITAL LABORATORY MONO x10^3 0.46 0.33 - 0.92 [facility] 10*3/uL HOSPITAL LAB[facility]ATORY EOS x10^3 0.18 0.03 - 0.39 [facility] 10*3/uL HOSPITAL LAB[facility]ORY BASO x10^3 0.05 0.01 - 0.07 [facility] 10*3/uL [facility] Specimen Blood - VENOUS Performing Organization Address City/State/Zipcode Phone Number [facility] CLIA: [id number] [place] [address] URINALYSIS (03/10/2020 9:49 PM STRIKE OFF MACHINE OPERATOR) Pathologist Sig nature APPEARANCE Clear Clear [facility] COLOR Yellow Yellow [facility] PH 6.0 4.8 - 8.0 [facility] SP GRAVITY 1.019 1.003 - 1.030 [facility] GLU U QUAL 50 mg/dL (A) Normal [facility] BLOOD Negative Negative [facility] KETONES Negative Negative [facility] PROTEIN Negative Negative [facility] UROBILIN Normal Normal [facility] BILIRUBIN Negative Negative [facility] NITRITE Negative Negative [facility] LEUK ROMINA 75/uL (A) Negative [facility] RBC/HPF 2 0 - 3 HPF [facility] WBC/HPF 5 0 - 5 HPF [facility] BACTERIA Few (A) Negative [facility] MUCOUS Slight (A) Negative LPF [facility] SQ EPITH 7 HPF [facility] Specimen Urine - URINE, CLEAN CATCH Performing Organization Address City/State/Zipcode Phone Number [facility] CLIA: [id number] [place] [address] documented in this encounter Visit Diagnoses Diagnosis Palpitations - Primary documented in this encounter Insurance Payer Benefit Plan Subscriber ID Effective Dates Phone Address Type / Group BCBS OF [facility] [id number] 2019-Krysta [phone] [address] PPO/POS [place] t 7 [id number] [place] [address] Guarantor Name Account Type Relation to Date of Phone Bill ing Patient Address [place]ha Personal/Family Self 1970 [address] (Home) [facility] [phone] [place] [id number] (Work) documented as of this encounter
[2020-03-30] MEDS ORDERED: MAGNES/ALUMIN/SIMET 30ML UCUP ONE (19:44)
[2020-03-30] MEDS ORDERED: ONDANSETRON 4 MG/2 ML VIAL ONE (19:44)
[2020-03-30] MEDS ORDERED: NA CHLORIDE 0.9% 1,000 ML ONE (19:45)
[2020-03-30] MEDS ORDERED: LIDOCAINE VISCOUS 2% SOLN 15 ML UDC ONE (19:45)
[2020-03-30] MEDS ORDERED: FAMOTIDINE 20 MG/2 ML VIAL IV ONE (19:45)
[2020-03-30 19:54] LABS: Albumin 4.4 g/dL (3.4-5.0); Bilirubin Direct 0.2 mg/dL (0-0.2); Bilirubin Total 0.9 mg/dL (0.2-1.0); Potassium 4.1 mmol/L (3.5-5.1); Protein, Total 7.9 g/dL (6.4-8.2)
[2020-03-30 20:11] LABS: Absolute Lymphocytes (CBC) 3.3 K/uL (0.7-4.9); Basophils % 0.8 % (0-1.3); Hematocrit 45.5 % (36.0-45.0); Lymphocytes % 34.5 % (15.3-44.8); MPV 9.5 fL (7.6-11.3); RBC Red Blood Cell Count 5.73 M/uL (3.86-4.86)
--- NOTE | 2020-03-30 20:24 | RAD REPORT ---
EXAM DESCRIPTION: US - Abdomen Exam Limited - 03/30/2020 7:52 pm CLINICAL HISTORY: ABD PAIN COMPARISON: Abdomen Exam Limited dated 06/14/2016 FINDINGS: Numerous variably sized gallstones are present nearly fully filling the lumen of the gallb ladder. Similar finding was noted in 2017. There is no wall thickening or pericholecystic fluid. No common duct stone or biliary tree dilatation identified. IMPRESSION: Multi stone cholelithiasis similar to 2017. No acute cholecystitis specific findings and no biliary tree abnormality.
[2020-03-30] MEDS ORDERED: DICYCLOMINE HCL 10 MG CAP ONE (20:46)
--- NOTE | 2020-03-30 20:56 | ER ---
Nurse's Notes [facility] Name: Radha Aguirre Age: 50 yrs Sex: Female : 1970 Arrival Date: 03/30/2020 Time: 15:43 Bed 6 Private MD: Pipo Galarza Diagnosis: Cholelithiasis Presentation: 03/30 16:05 Chief complaint: Patient states: Nausea with eating x 2-3 weeks, US yesterday in [place] and they reported gallstones, reports epigastric and RUQ pain just started today. Coronavirus screen: Client denies travel out of the [place] in the last 14 days. At this time, the client does not indicate any symptoms associated with coronavirus-19. Ebola Screen: No symptoms or risks identified at this time. Initial Sepsis Screen: Does the patient meet any 2 criteria? No. Patient's initial sepsis screen is negative. Does the patient have a suspected source of infection? No. Patient's initial sepsis screen is negative. Risk Assessment: Do you want to hurt yourself or someone else? Patient reports no desire to harm self or others. Onset of symptoms was March 30, 2020. Care prior to arrival: None. 16:05 Method Of Arrival: Ambulatory [facility] 16:05 Acuity: SARAN 3 jl7 Triage Assessment: 16:08 General: Appears in no apparent distress. uncomfortable, ill, Behavior is calm, jl7 cooperative, appropriate for age. Pain: Complains of pain in epigastric area and right upper quadrant Pain currently is 8 out of 10 on a pain scale. GI: Reports upper abdominal pain, epigastric pain. 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 - Social history:: Smoking status: Patient denies any tobacco usage or history of. Screenin:30 Abuse screen: Denies threats or abuse. Nutritional screening: No deficits noted. ea Tuberculosis screening: No symptoms or risk factors identified. Fall Risk None identified. Assessment: 19:30 General: Appears in no apparent distress. Behavior is calm, cooperative, appropriate ea for age. Pain: Complains of pain in epigastric area. Neuro: Level of Consciousness is awake, alert, obeys commands, Oriented to person, place, time. Respiratory: Airway is patent Respiratory effort is even, unlabored, Respiratory pattern is regular, symmetrical. GI: Abdomen is non-distended. Derm: Skin is pink, warm \T\ dry. 20:59 Reassessment: Patient and/or family updated on plan of care and expected duration. Pain ea level reassessed. Patient is alert, oriented x 3, equal unlabored respirations, skin warm/dry/pink. Discharge instruction given to patient, verbalized the understanding of instruction. Pt left ED ambulatory tolerating well. Vital Signs: 16:05 BP 130 / 92; Pulse 82; Resp 17; Pulse Ox 99% ; Weight 98.43 kg; Height 5 ft. 7 in. jl7 (170.18 cm); Pain 8/10; 20:55 BP 128 / 80; Pulse 80; Resp 18; Temp 98.0; Pulse Ox 98% ; ea 16:05 Body Mass Index 33.99 (98.43 kg, 170.18 cm) jl7 ED Course: 15:43 Patient arrived in ED. as 15:43 Pipo Galarza DO is Private Physician. as 16:07 Triage completed. jl7 16:08 Arm band placed on right wrist. jl7 17:06 Patient taken to ultrasound. via wheelchair. is 17:13 Radiology exam delayed due to came to lobby to get patient, pt not there possibly in is restroom waited 5 mins. notified ed registration to call me when pt is back. 17:15 Francisco J Hernandez PA is PHCP. cp 17:15 Dhiraj Humphries MD is Attending Physician. cp 19:10 Franci Pineda, CATRINA is Primary Nurse. ea 19:15 Francisco J Hernandez PA is PHCP. cp 19:15 Dhiraj Humphries MD is Attending Physician. cp 19:30 Patient has correct armband on for positive identification. Bed in low position. Call ea light in reach. 19:52 US Abdomen Limited In Process Unspecified. EDMS 20:54 Alex Arevalo MD is Referral Physician. cp 20:58 No provider procedures requiring assistance completed. IV discontinued, intact, ea bleeding controlled, No redness/swelling at site. Pressure dressing applied. Administered Medications: 19:30 Drug: Pepcid 20 mg Route: IVP; Site: left antecubital; ea 20:55 Follow up: Response: No adverse reaction ea 19:36 Drug: Zofran (Ondansetron) 4 mg Route: IVP; Site: left antecubital; ea 20:55 Follow up: Response: No adverse reaction ea 19:36 Drug: NS 0.9% 1000 ml Route: IV; Rate: 1 bolus; Site: left antecubital; ea 20:30 Follow up: Response: No adverse reaction; IV Status: Completed infusion; IV Intake: ea 1000ml 19:37 Not Given (Patient Refused): GI Cocktail without - (Maalox Suspension 30 ml, ea Lidocaine Liquid 2 % 15 ml) PO once 20:41 Drug: Bentyl 20 mg Route: PO; ea 20:55 Follow up: Response: No adverse reaction ea 20:41 Drug: GI Cocktail without - (Maalox Suspension 30 ml, Lidocaine Liquid 2 % 15 ea ml) Route: PO; 20:55 Follow up: Response: No adverse reaction ea Intake: 20:30 IV: 1000ml; Total: 1000ml. ea Outcome: 20:55 Discharge ordered by . cp 20:58 Discharged to home ambulatory. ea 20:58 Condition: stable 20:58 Discharge instructions given to patient, Instructed on discharge instructions, follow up and referral plans. medication usage, Demonstrated understanding of instructions, follow-up care, medications, Prescriptions given X 2. 21:01 Patient left the ED. ea Signatures: Dispatcher [employer] EDMS Jessica Montes De Oca Corey, PA PA cp Leal, Jahala RN RN jlFranci Johnson RN RN Jlely Mayers is
--- NOTE | 2020-03-30 20:56 | EDPHYS ---
Physician Documentation [facility] Name: Radha Aguirre Age: 50 yrs Sex: Female : 1970 Arrival Date: 03/30/2020 Time: 15:43 Bed 6 Private MD: Pipo Galarza ED Physician Dhiraj Humphries HPI: 03/30 19:20 This 50 yrs old Female presents to ER via Ambulatory with complaints of cp Epigastric Pain, Back Pain. 19:20 The patient presents with abdominal pain in the epigastric area, in the right upper cp quadrant. Onset: The symptoms/episode began/occurred today. The symptoms radiate to right back. Associated signs and symptoms: Pertinent positives: anorexia, nausea, Pertinent negatives: constipation, diarrhea, dysuria, fever, vomiting. 19:20 The symptoms are described as constant. cp 19:20 Modifying factors: the symptoms are aggravated by food, pressure. Severity of pain: in cp the emergency department the pain is unchanged despite home interventions. [place] ED yesterday. Patient reports having US performed that showed gallstones. 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 - Social history:: Smoking status: Patient denies any tobacco usage or history of. ROS: 19:30 Constitutional: Negative for body aches, chills, fever, poor PO intake. cp 19:30 Eyes: Negative for injury, pain, redness, and discharge. cp 19:30 ENT: Negative for ear pain, sore throat, difficulty swallowing, difficulty handling secretions. 19:30 Cardiovascular: Positive for chest pain, of the lower chest, Negative for edema, palpitations. 19:30 Respiratory: Negative for cough, shortness of breath, wheezing. 19:30 Abdomen/GI: Positive for abdominal pain, nausea, anorexia, Negative for vomiting, diarrhea, constipation. 19:30 Back: Positive for radiated pain, of the right mid back, Negative for injury or acute deformity. 19:30 : Negative for urinary symptoms. 19:30 Neuro: Negative for altered mental status, headache, weakness. 19:30 All other systems are negative. Exam: 19:35 Constitutional: The patient appears in no acute distress, alert, awake, non-toxic, well cp developed, well nourished. 19:35 Head/Face: Normocephalic, atraumatic. cp 19:35 Eyes: Periorbital structures: appear normal, Conjunctiva: normal, no exudate, no injection, Sclera: no appreciated abnormality, Lids and lashes: appear normal, bilaterally. 19:35 ENT: External ear(s): are unremarkable, Nose: is normal, Posterior pharynx: Airway: no evidence of obstruction, patent. 19:35 Chest/axilla: Inspection: normal, Palpation: is normal, no crepitus, no tenderness. 19:35 Cardiovascular: Rate: normal, Rhythm: regular. 19:35 Respiratory: the patient does not display signs of respiratory distress, Respirations: normal, no use of accessory muscles, no retractions, labored breathing, is not present, Breath sounds: are clear throughout, no decreased breath sounds. 19:35 Abdomen/GI: Inspection: abdomen appears normal, Bowel sounds: active, all quadrants, Palpation: soft, in all quadrants, mild abdominal tenderness, in the epigastric area and right upper quadrant, rebound tenderness, is not appreciated, voluntary guarding, is not appreciated, involuntary guarding, is not appreciated. 19:35 Back: pain, that is mild, of the right mid back, ROM is normal. Vital Signs: 16:05 BP 130 / 92; Pulse 82; Resp 17; Pulse Ox 99% ; Weight 98.43 kg; Height 5 ft. 7 in. jl7 (170.18 cm); Pain 8/10; 20:55 BP 128 / 80; Pulse 80; Resp 18; Temp 98.0; Pulse Ox 98% ; ea 16:05 Body Mass Index 33.99 (98.43 kg, 170.18 cm) jl7 MDM: 19:10 Patient medically screened. cp 20:48 Physician consultation: Alex Arevalo MD was called at 20:49, was contacted at 20:49, cp regarding consult, patient's condition, wants patient to call office in morning to schedule appointment for next 1-2 days. 20:55 Data reviewed: vital signs, nurses notes, lab test result(s), radiologic studies, cp ultrasound. 20:55 Counseling: I had a detailed discussion with the patient and/or guardian regarding: the cp historical points, exam findings, and any diagnostic results supporting the discharge/admit diagnosis, lab results, radiology results, the need for outpatient follow up, for definitive care, a general surgeon, to return to the emergency department if symptoms worsen or persist or if there are any questions or concerns that arise at home. Special discussion: Based on the patient's Hx, exam, and Dx evaluation, there is no indication for emergent surgery or inpatient Tx. It is understood by the patient/guardian that if the Sx's persist or worsen they need to return immediately for re-evaluation. 03/30 17:08 Order name: Basic Metabolic Panel; Complete Time: 20:03 kb 03/30 20:04 Interpretation: Normal except: GLUC 111; GFR 63. 03/30 17:08 Order name: CBC with Diff; Complete Time: 20:16 kb 03/30 20:17 Interpretation: Normal except: RBC 5.73; HCT 45.5; MCV 79.4; MCH 26.3. 03/30 16:11 Order name: US Abdomen Limited; Complete Time: 20:34 kb 03/30 20:34 Interpretation: Report reviewed. 03/30 17:08 Order name: Hepatic Function; Complete Time: 20:03 kb 03/30 20:03 Interpretation: Normal except: AST 11. 03/30 17:08 Order name: Lipase; Complete Time: 20:03 kb 03/30 17:08 Order name: IV Saline Lock; Complete Time: 19:25 kb 03/30 17:08 Order name: Labs collected and sent; Complete Time: 19:25 kb 03/30 20:17 Order name: PO challenge; Complete Time: 20:41 cp Administered Medications: 19:30 Drug: Pepcid 20 mg Route: IVP; Site: left antecubital; ea 20:55 Follow up: Response: No adverse reaction ea 19:36 Drug: Zofran (Ondansetron) 4 mg Route: IVP; Site: left antecubital; ea 20:55 Follow up: Response: No adverse reaction ea 19:36 Drug: NS 0.9% 1000 ml Route: IV; Rate: 1 bolus; Site: left antecubital; ea 20:30 Follow up: Response: No adverse reaction; IV Status: Completed infusion; IV Intake: ea 1000ml 19:37 Not Given (Patient Refused): GI Cocktail without - (Maalox Suspension 30 ml, ea Lidocaine Liquid 2 % 15 ml) PO once 20:41 Drug: Bentyl 20 mg Route: PO; ea 20:55 Follow up: Response: No adverse reaction ea 20:41 Drug: GI Cocktail without - (Maalox Suspension 30 ml, Lidocaine Liquid 2 % 15 ea ml) Route: PO; 20:55 Follow up: Response: No adverse reaction ea Disposition: 03/31 17:48 Co-signature as Attending Physician, Dhiraj Humphries MD. rn Disposition: 03/30/20 20:55 Discharged to Home. Impression: Cholelithiasis. - Condition is Stable. - Discharge Instructions: Biliary Colic, Adult, Cholelithiasis. - Prescriptions for Bentyl 20 mg Oral Tablet - take 2 tablet by ORAL route every 6 hours As needed; 40 tablet. Zofran 4 mg Oral Tablet - take 1 tablet by ORAL route every 12 hours As needed; 20 tablet. - Medication Reconciliation Form, Thank You Letter, Antibiotic Education, Prescription Opioid Use form. - Follow up: Alex Arevalo MD; When: call office in morning to schedule appointment; Reason: Recheck today's complaints. - Problem is new. - Symptoms have improved. Signatures: Dispatcher [employer] EDKS Yoselin Singleton, ASSISTANT PROFESSOR OF NURSING-C ASSISTANT PROFESSOR OF NURSING-Ckb Dhiraj Humphries MD MD rn Page, Corey, PA PA cp Darren Adame RN RN jlFranci Johnson RN RN jeff Corrections: (The following items were deleted from the chart) 03/30 21:01 20:55 03/30/2020 20:55 Discharged to Home. Impression: Cholelithiasis. Condition is ea Stable. Forms are Medication Reconciliation Form, Thank You Letter, Antibiotic Education, Prescription Opioid Use. Follow up: Alex Arevalo; When: call office in morning to schedule appointment; Reason: Recheck today's complaints. Problem is new. Symptoms have improved. cp
[2020-03-30 21:07] VITALS: BP 128/80; TEMP 98; O2SAT 98
== END 2020-03-30 21:01 | disposition home or self-care (01) ==
LOC: ER 15:40
DX: K80.20 Calculus of gallbladder without cholecystitis without obstruction (principal); I10 Essential (primary) hypertension; Z88.2 Allergy status to sulfonamides
CPT/HCPCS: 96361; 85025; 80048; 36415; 80076; 83690; 76705; 96375; 96374; 99284; J7030; J2405

== ENCOUNTER 2020-04-04 09:56 | Day surgery (SDC) | payer BC ==
--- OUTSIDE RECORDS SUMMARY | 2020-04-04 09:59 | XMS REPORT | Clinical Summary ---
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 Last Filed Vital Signs Vital Sign Reading Time Taken Comments Blood Pressure 142/81 03/22/2020 2:00 PM BALLISTICS TEACHER Pulse 77 03/22/2020 2:00 PM BALLISTICS TEACHER Temperature - - Respiratory Rate - - Oxygen Saturation - - Inhaled Oxygen Concentration - - Weight 101 kg (223 lb) 03/22/2020 2:00 PM BALLISTICS TEACHER Height 170.2 cm (5' 7") 03/22/2020 2:00 PM BALLISTICS TEACHER Body Mass Index 34.93 03/22/2020 2:00 PM BALLISTICS TEACHER Plan of Treatment Health Maintenance Due Date Last Done Comments COVID-19 VACCINE (1 of 2) 1984 CERVICAL CANCER SCREENING 01/20/1989 BREAST CANCER SCREENING 01/20/2018 COLONOSCOPY SCREENING 01/20/2018 SHINGLES VACCINES (#1) 01/20/2018 INFLUENZA VACCINE 10/17/2019 Procedures Procedure Name Priority Date/Time Associated Diagnosis Comme nts ECG 12-LEAD Routine 03/22/2020 2:09 PM Lightheadedness Resul ts for this 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
--- OUTSIDE RECORDS SUMMARY | 2020-04-04 09:59 | XMS REPORT | Continuity of Care Document ---
:1970 Author Organization [facility] t Address [address] [place] [address] Care Team Providers Name Role Phone Asked, Pcp Primary Care Physician Unavailable Lu Prince DO Attending Clinician Colton Tate MD Attending Clinician Briseyda CONN Attending Clinician Payers Payer Name Policy Type Policy Effective Date Expiration Date Sour ce Number BCBSBCBS CHOICE [id number] 2019 [place] PPO/FEDERAL 00:00:00 [employer] EMPL [id number] 2019-Presen tPPO Problems Condition Condition Condition Status Onset Resolution Last Treating Co mments Source Name Details Category Date Date Treatment Clinician Date Lightheade Lightheade Disease Active H shanda dness dness -05 Methodi 00:00: st 00 Palpitatio Palpitatio Disease Active H shanda n n -05 Methodi 00:00: st 00 Allergies, Adverse Reactions, Alerts Allergy Allergy Status Severity Reaction(s) Onset Inactive Treating Comm ents Source Name Type Date Date Clinician Sulfa Propensi Active Rash [place] (Sulfona ty to 05 Methodi mide adverse 00:00: st Antibiot reaction 00 ics) s to drug Family History Family Member Diagnosis Comments Start Date Stop Date Source Natural father Coronary artery [place] [facility] disease Social History Social Habit Start Date Stop Date Quantity Comments Source Sex Assigned At [place] M ethodist Exposure to Not sure [place] Metho dist SARS-CoV-2 (event) Tobacco use and 2020-03-22 2020-03-22 Never used See [place] ethodist exposure 00:00:00 00:00:00 Alcohol intake 2020-03-22 2020-03-22 Ex-drinker [facility] thodist 00:00:00 00:00:00 (finding) Smoking Status Start [...] blood 2020-03-22 14:00:00 142 mm[Hg] [place] pressure Diastolic blood 2020-03-22 14:00:00 81 mm[Hg] [place] [facility] pressure Heart rate 2020-03-22 14:00:00 77 /min [place] [facility] Body height 2020-03-22 14:00:00 170.2 cm [place] [facility] Body weight 2020-03-22 14:00:00 101.152 kg [place] [facility] BMI 2020-03-22 14:00:00 34.93 kg/m2 [place] [facility] Procedures Procedure Date / Time Performed Performing Clinician Chantal lozada ECG 12-LEAD 2020-03-22 14:09:45 Yusuf Tate odbisi Plan of Care Planned Activity Planned Date Details Comments Source Future Scheduled 2019-10-17 INFLUENZA VACCINE [place] [facility] Test 00:00:00 [code = INFLUENZA VACCINE] Future Scheduled 2018-01-20 BREAST CANCER [facility] thodist Test 00:00:00 SCREENING [code = BREAST CANCER SCREENING] Future Scheduled 2018-01-20 COLONOSCOPY SCREENING [facility] Test 00:00:00 [code = COLONOSCOPY SCREENING] Future Scheduled 2018-01-20 SHINGLES VACCINES [place] [facility] Test 00:00:00 (#1) [code = SHINGLES VACCINES (#1)] Future Scheduled 1989-01-20 Screening for [facility] thodist Test 00:00:00 malignant neoplasm of cervix (procedure) [code = 982454635] Future Scheduled 1984 COVID-19 VACCINE (1 [place] [facility] Test 00:00:00 of 2) [code = COVID-19 VACCINE (1 of 2)] Encounters Start End Encounter Admission Attending Care Care Encounter Source Date/Time Date/Time Type Type Clinicians Facility Department ID 2020-03-25 2020-03-26 [id number] 23:11:00 00:43:00 Addis Gold [id number] [place] [id number] [place] [id number] 2020-03-22 2020-03-22 Outpatient [facility] [id number] [place] 00:00:00 00:00:00 YUSUF Bauer [facility] 2020-03-10 2020-03-10 [id number] 21:24:00 23:43:00 Charlie Gold [id number] [place] [id number] [place] [id number] Results Test Description Test Time Test Comments Results Result Comments Source ECG 12 lead 2020-03-22 22:59:11 Test Item Value Reference Range Interpretation Comme nts Ventricular rate (test code = 253) 71 Atrial rate (test code = 255) 71 ME interval (test code = 266) 180 QRSD [...]
[2020-04-04] MEDS ORDERED: Ringers Lactate 1,000 ML IV ONE (10:30)
[2020-04-04] MEDS ORDERED: propofoL 200 MG/20 ML VIAL IV ONE ×2 (11:45→11:49)
--- NOTE | 2020-04-04 12:46 | ENDO RPT ---
[address], [address] EGD PROCEDURE REPORT EXAM DATE: 04/04/2020 PATIENT NAME: Radha Aguirre MR#: [id number] BIRTHDATE: 1970 ATTENDING: Alex Arevalo DR STATUS: outpatient HAT MODEL: Ariella Gonsales RN and Tobias Wick [facility] INDICATIONS: The patient is a 50 yr old Female here for an EGD due to abdominal pain, GERD, epigastric pain, and dyspepsia PROCEDURE PERFORMED: EGD with biopsy for H. pylori MEDICATIONS: Per Anesthesia. TOPICAL ANESTHETIC: none CONSENT: The patient understands the risks and benefits of the procedure and understands that these risks include, but are not limited to: sedation, allergic reaction, infection, perforation and/or bleeding. Alternative means of evaluation and treatment include, among others: physical exam, x-rays, and/or surgical intervention. The patient elects to proceed with this endoscopic procedure. DESCRIPTION OF PROCEDURE: During intra-op preparation period all mechanical medical equipment was checked for proper function. Hand hygiene and appropriate measures for infection prevention was taken. Procedure, possible complications, and alternatives including but not limited to the possibility of bleeding, perforation, tear, infection, sepsis, need for surgery, need for blood transfusion, and anesthesia related complications were explained to the patient. After the risks, benefits and alternatives of the procedure were thoroughly explained, Informed consent was verified, confirmed and timeout was successfully executed by the treatment team. The patient was placed in the left lateral position. The patient was anesthetized with topical anesthesia. Through the anesthetized oropharyngeal area, the scope was passed without any difficulty. The [id number] ([id number]) and [id number] ([id number]) endoscope was introduced through the mouth and advanced to the second portion of the duodenum. Retroflexed views revealed a small hiatal hernia. The gastroscope was then slowly withdrawn and removed. LA Class A esophagitis was found in the lower esophagus. A biopsy for H. pylori was taken. Bile reflux was found in the body and the antrum of the stomach. A biopsy for H. pylori was taken. Multiple erosions were found at the pylorus. A biopsy for H. pylori was taken. ADVERSE EVENTS: There were no complications. IMPRESSIONS: 1. LA Class A esophagitis was found in the lower esophagus 2. Bile reflux was found in the body and the antrum of the stomach 3. Multiple erosions were found at the pylorus RECOMMENDATIONS: 1. acid suppression therapy 2. anti-reflux regimen 3. await biopsy results 4. avoid NSAIDS 5. follow-up: office 2 week(s) 6. follow-up of helicobacter pylori status, treat if indicated REPEAT EXAM: Alex Arevalo DR eSigned: Alex Arevalo DR 04/04/2020 12:46 PM cc: CPT CODES: ICD9 CODES: PATIENT NAME: Radha AguirreWalter MR#: [id number]
--- NOTE | 2020-04-04 12:48 | ENDO RPT ---
[address], [address] COLONOSCOPY PROCEDURE REPORT EXAM DATE: 04/04/2020 PATIENT NAME: Radha Aguirre MR #: [id number] BIRTHDATE: 1970 ATTENDING: Alex Arevalo DR STATUS: outpatient NUT SORTER: Ariella Gonsales RN and Tobias Wick [facility] INDICATIONS: The patient is a 50 yr old Female here for a colonoscopy due to colon cancer screening PROCEDURE PERFORMED: Screening Colonoscopy and Colonoscopy MEDICATIONS: Per Anesthesia. ESTIMATED BLOOD LOSS: None CONSENT: The patient understands the risks and benefits of the procedure and understands that these risks include, but are not limited to: sedation, allergic reaction, infection, perforation and/or bleeding. Alternative means of evaluation and treatment include, among others: physical exam, x-rays, and/or surgical intervention. The patient elects to proceed with this endoscopic procedure. DESCRIPTION OF PROCEDURE: During intra-op preparation period all mechanical medical equipment was checked for proper function. Hand hygiene and appropriate measures for infection prevention was taken. Procedure, possible complications, alternatives including, but not limited to possibility of bleeding, perforation, tear, infection, sepsis, need for surgery, need for blood transfusion, were explained to the patient. After the risks, benefits and alternatives of the procedure were thoroughly explained, Informed consent was verified, confirmed and timeout was successfully executed by the treatment team. The patient was placed in the left lateral position. A digital rectal exam was performed and revealed external hemorrhoids and A digital rectal exam was performed and revealed internal hemorrhoids. After appropriate level of anesthesia, the scope was passed. The EC-[id number] ([id number]) endoscope was introduced through the anus and advanced to the cecum, which was identified by both the appendix and ileocecal valve. The quality of the prep was fair. The instrument was then slowly withdrawn as the colon was fully examined. Scope withdrawal time was 9 minutes. COLON FINDINGS: A normal appearing cecum, ileocecal valve, and appendiceal orifice were identified. the ascending, transverse, descending, sigmoid colon, and rectum appeared unremarkable. Retroflexed views revealed no abnormalities. The scope was then completely withdrawn from the patient and the procedure terminated. ADVERSE EVENTS: There were no complications. IMPRESSIONS: A normal appearing cecum, ileocecal valve, and appendiceal orifice were identified. the ascending, transverse, descending, sigmoid colon, and rectum appeared unremarkable RECOMMENDATIONS: 1. fiber rich diet 2. follow-up: office 2 week(s) 3. Monitor for any evidence of rectal bleeding. 4. See EGD report. 5. increase dietary water 6. yearly hemoquant 7. hemorrhoidal hygiene RECALL: Return in 10 year(s) for Colonoscopy. Alex Arevalo DR eSigned: Alex Arevalo DR 04/04/2020 12:48 PM cc: CPT CODES: ICD9 CODES: PATIENT NAME: Radha Aguirre MR#: [id number]
[2020-04-04 13:18] VITALS: TEMP 98.2; O2SAT 99
[2020-04-04 13:21] VITALS: BP 100/67
== END 2020-04-04 13:23 | disposition home or self-care (01) ==
LOC: OR 09:56
PROVIDERS: ATTEND Surgery
PROC: 0DB78ZX Excision of Stomach, Pylorus, Via Natural or Artificial Opening Endoscopic, Diagnostic (ICD-10-PCS; 2020-04-04)
PROC: 0DB68ZX Excision of Stomach, Via Natural or Artificial Opening Endoscopic, Diagnostic (ICD-10-PCS; 2020-04-04)
PROC: 0DB48ZX Excision of Esophagogastric Junction, Via Natural or Artificial Opening Endoscopic, Diagnostic (ICD-10-PCS; 2020-04-04)
PROC: 0DJD8ZZ Inspection of Lower Intestinal Tract, Via Natural or Artificial Opening Endoscopic (ICD-10-PCS; principal; 2020-04-04 12:00)
PROC: 0DB98ZX Excision of Duodenum, Via Natural or Artificial Opening Endoscopic, Diagnostic (ICD-10-PCS; 2020-04-04 12:00)
DX: K29.50 Unspecified chronic gastritis without bleeding (principal); R11.2 Nausea with vomiting, unspecified; K29.80 Duodenitis without bleeding; K44.9 Diaphragmatic hernia without obstruction or gangrene; K21.00 Gastro-esophageal reflux disease with esophagitis, without bleeding; K21.9 Gastro-esophageal reflux disease without esophagitis; Z12.11 Encounter for screening for malignant neoplasm of colon; Z20.822 Contact with and (suspected) exposure to COVID-19
CPT/HCPCS: 88312; 88305; 45378; 43239; U0002; J2704 ×2; J7120

== ENCOUNTER 2020-04-15 07:26 | Day surgery (SDC) | payer BC ==
--- OUTSIDE RECORDS SUMMARY | 2020-04-15 07:29 | XMS REPORT | Continuity of Care Document ---
:1970 Author Organization [facility] t Address [address] [place] [address] Care Team Providers Name Role Phone Asked, Pcp Primary Care Physician Unavailable Lu Prince DO Attending Clinician Colton Tate MD Attending Clinician Briseyda CONN Attending Clinician Payers Payer Name Policy Type Policy Effective Date Expiration Date Sour ce Number BCBSBCBS CHOICE [id number] 2019 [place] PPO/FEDERAL 00:00:00 [facility] EM[employer] [id number] 2019-Presen tPPO Problems Condition Condition Condition Status [...] Date Date Clinician Sulfa Propensi Active Rash [place] (Sulfona ty to 05 Methodi mide adverse 00:00: st Antibiot reaction 00 ics) s to drug Family History Family Member Diagnosis Comments Start Date Stop Date Source Natural father Coronary artery [place] [facility] disease Social History Social Habit Start Date Stop Date Quantity Comments Source Sex Assigned At [place] M ethodist Exposure to Not sure [place] Metho dist SARS-CoV-2 (event) Tobacco use and 2020-03-22 2020-03-22 Never used See [place] ethodist exposure 00:00:00 00:00:00 Alcohol intake 2020-03-22 2020-03-22 Ex-drinker [facility] thodist 00:00:00 00:00:00 (finding) Smoking Status Start [...] blood 2020-03-22 14:00:00 142 mm[Hg] [place] pressure Diastolic blood 2020-03-22 14:00:00 81 mm[Hg] [place] [facility] pressure Heart rate 2020-03-22 14:00:00 77 /min [place] [facility] Body height 2020-03-22 14:00:00 170.2 cm [place] [facility] Body weight 2020-03-22 14:00:00 101.152 kg [place] [facility] BMI 2020-03-22 14:00:00 34.93 kg/m2 [place] [facility] Procedures Procedure Date / Time Performed Performing Clinician Chantal lozada ECG 12-LEAD 2020-03-22 14:09:45 Yusuf Tate odbisi Plan of Care Planned Activity Planned Date Details Comments Source Future Scheduled 2019-10-17 INFLUENZA VACCINE [place] Test 00:00:00 [code = INFLUENZA VACCINE] Future Scheduled 2018-01-20 BREAST CANCER [facility] thodist Test 00:00:00 SCREENING [code = BREAST CANCER SCREENING] Future Scheduled 2018-01-20 COLONOSCOPY SCREENING [facility] Test 00:00:00 [code = COLONOSCOPY SCREENING] Future Scheduled 2018-01-20 SHINGLES VACCINES [place] Test 00:00:00 (#1) [code = SHINGLES VACCINES (#1)] Future Scheduled 1989-01-20 Screening for [facility]odist Test 00:00:00 malignant neoplasm of cervix (procedure) [code = 659196909] Future Scheduled 1984 COVID-19 VACCINE (1 [place] [facility] Test 00:00:00 of 2) [code = COVID-19 VACCINE (1 of 2)] Encounters Start End Encounter Admission Attending Care Care Encounter Source Date/Time Date/Time Type Type Clinicians Facility Department ID 2020-03-25 2020-03-26 [id number] 23:11:00 00:43:00 Addis Gold [id number] [place] [id number] [place] [id number] 2020-03-22 2020-03-22 Outpatient [facility] [id number] [place] 00:00:00 00:00:00 YUSUF Bauer Method [facility] 2020-03-10 2020-03-10 [facility] [id number] 21:24:00 23:43:00 Charlie Gold [id number] [place] [id number] [place] [id number] Results Test Description Test Time Test Comments Results Result Comments Source ECG 12 lead 2020-03-22 22:59:11 Test Item Value Reference Range Interpretation Comme nts Ventricular rate (test code = 253) 71 Atrial rate (test code = 255) 71 MS interval (test code = 266) 180 QRSD [...]
--- OUTSIDE RECORDS SUMMARY | 2020-04-15 07:29 | XMS REPORT | Clinical Summary ---
:1970 Author Organization [facility] Address [address] [place] [id number] Care Team Providers Name Role Phone Asked, [...] Dx); Palpitation 03/22/2020 Travel 03/14/2020 Travel after 04/15/2019 Medical History Medical History Date Comments Hypertension [...] with No / Unsure 03/22/2020 1:47 PM COUNTY SURVEYOR someone who was confirmed or suspected to have Coronavirus / COVID-19? Last Filed Vital Signs Vital Sign Reading Time Taken Comments Blood Pressure 142/81 03/22/2020 2:00 PM COUNTY SURVEYOR Pulse 77 03/22/2020 2:00 PM COUNTY SURVEYOR Temperature - - Respiratory Rate - - Oxygen Saturation - - Inhaled Oxygen Concentration - - Weight 101 kg (223 lb) 03/22/2020 2:00 PM COUNTY SURVEYOR Height 170.2 cm (5' 7") 03/22/2020 2:00 PM COUNTY SURVEYOR Body Mass Index 34.93 03/22/2020 2:00 PM COUNTY SURVEYOR Plan of Treatment Health Maintenance Due Date Last Done Comments COVID-19 VACCINE (1 of 2) 1984 CERVICAL CANCER SCREENING 01/20/1989 BREAST CANCER SCREENING 01/20/2018 COLONOSCOPY SCREENING 01/20/2018 SHINGLES VACCINES (#1) 01/20/2018 INFLUENZA VACCINE 10/17/2019 Procedures Procedure Name Priority Date/Time Associated Diagnosis Comme nts ECG 12-LEAD Routine 03/22/2020 2:09 PM Lightheadedness Resul ts for this COUNTY SURVEYOR procedure are i n the results section . 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
[2020-04-15] MEDS ORDERED: Ringers Lactate 1,000 ML IV ONE ×2 (08:13→09:47)
[2020-04-15 08:46] LABS: Specific Gravity 1.025 (1.005-1.030)
[2020-04-15] MEDS: CEFOXITIN/SWI 1gm 1 GM/10 ML SYR ONE ×2 (08:46→09:12)
[2020-04-15] MEDS: BUPIVACAINE 0.25% PF 30 ML VIAL ONE ×2 (08:47→09:17)
[2020-04-15] MEDS ORDERED: ROCURONIUM 50 MG/5 ML VIAL IV ONE (09:01)
[2020-04-15] MEDS ORDERED: LIDOCAINE 1% MPF 5 ML VIAL ONE (09:01)
[2020-04-15] MEDS ORDERED: FENTANYL CITR 100 MCG/2 ML ONE (09:01)
[2020-04-15] MEDS ORDERED: MIDAZOLAM HCL 2 MG/2 ML INJ ONE (09:01)
[2020-04-15] MEDS ORDERED: propofoL 200 MG/20 ML VIAL IV ONE (09:01)
[2020-04-15] MEDS ORDERED: GLYCOPYRROLATE 0.2 MG/ML SYR ONE (09:43)
[2020-04-15] MEDS ORDERED: KETOROLAC 30 MG/ML INJ ONE (09:43)
[2020-04-15] MEDS ORDERED: dexAMETHasone 10 MG/ML VIAL ONE (09:43)
[2020-04-15] MEDS ORDERED: ONDANSETRON 4 MG/2 ML VIAL ONE (09:46)
[2020-04-15] MEDS ORDERED: NEOSTIGMINE 1 MG/ML -5 ML ONE (09:46)
--- NOTE | 2020-04-15 10:11 | P.OP ---
Preoperative diagnosis: Chronic Cholecystitis with cholelithiasis Postoperative diagnosis: Chronic Cholecystitis with cholelithiasis Primary procedure: Laparoscopic Cholecystectomy Anesthesia: GETA + Local Estimated blood loss: <10cc Specimen: [email or web address] Findings: cholelithiasis Complications: None Transferred to: Recovery Room Condition: Good
[2020-04-15] MEDS: FENTANYL CITR 100 MCG/2 ML ONE ×2 (10:24→10:30)
--- NOTE | 2020-04-15 10:46 | OP ---
Date of Procedure: 04/15/2020 Surgeon: Alex Arevalo MD, Preoperative Diagnosis: Chronic cholecystitis with cholelithiasis. Postoperative Diagnosis: Chronic cholecystitis with cholelithiasis. Procedure Performed: Laparoscopic cholecystectomy. Anesthesia: General endotracheal plus local with 0.25% Marcaine without epinephrine. Estimated Blood Loss: Less than 10 cc. Specimen: Gallbladder. Findings: Cholelithiasis. Complications: None. Disposition: The patient transferred to recovery room in good condition. Procedure In Detail: After informed consent was obtained, the patient was brought to the operating r oom, prepped and draped in the usual sterile fashion. After adequate anesthesia was achieved, a supr aumbilical area was anesthetized with 0.25% Marcaine and sharply incised and a 5 mm 0-degree optical trocar was introduced in the abdomen without evidence of complication. Insufflation was obtained to 15 mm at this time. There was no injury to vital structures upon entry into the abdomen. There were found to be gross inflammatory changes in the right upper quadrant with encasement of the gallbladde r by the omentum. Two additional trocars were placed, 1 in the epigastrium and 1 in the right upper quadrant. Both of these were similarly anesthetized and sharply incised. 5 mm trocars were introduc ed in the abdomen under direct visualization without evidence of complication. The umbilical trocar was then up-sized to a 12 mm under direct visualization without evidence of complication. The patien t was positioned in head up right-side up position. Ratcheted grasper was used to dissect the omentu m off the anterior surface of the gallbladder using a combination of sharp and blunt dissection and e lectrocautery. After this was done, dissection continued down to the Tania pouch of the gallbladd er to expose the cystic duct and cystic artery. The critical view of safety was obtained at this poi nt. After skeletonizing these 2 structures, the areas were skeletonized with a [place] retractor. After this was performed, double titanium clips were placed doubly on the proximal side and singly on the distal side of both the cystic duct and cystic artery. Both of these were ligated with Endo She ars without evidence of complication. The gallbladder did require some decompression due to the sign ificant stone burden for manipulation of the gallbladder. The gallbladder was then removed from the hepatic fossa with minimal bile spillage. It was then placed in EndoCatch bag and removed through th e umbilical trocar site and sent off for pathologic examination. The abdomen was then reinflated at this point. The clips were found to be in good anatomic position. The area was copiously irrigated multiple times and suctioned out until completely dry. No additional hemostatic measures required. The patient was positioned back in neutral position. The remainder effluent was suctioned out and th e trocar was removed at the umbilical position. The trocar site was then closed using a Erica be suture passer with an 0 Vicryl in an interrupted fashion with good approximation of tissues. The abdomen was completely desufflated under direct vision without evidence of complication. Remaining trocars were removed. All skin incisions were copiously irrigated and closed with 4-0 Monocryl in a running fashion. Dermabond was placed over top. The patient tolerated the procedure well without ev idence of complication and transferred to PACU in good condition. All counts were correct at the end of the case. TERE/DAJUAN Voice ID: [id number] Report ID: [id number]
[2020-04-15 10:52] VITALS: O2SAT 96
[2020-04-15] MEDS ORDERED: HYDROCODONE/APAP 5/325 MG TAB ONE (11:36)
[2020-04-15 13:40] VITALS: BP 113/70; TEMP 97
== END 2020-04-15 12:40 | disposition home or self-care (01) ==
LOC: OR 07:26
PROVIDERS: ATTEND Surgery
PROC: 0FT44ZZ Resection of Gallbladder, Percutaneous Endoscopic Approach (ICD-10-PCS; principal; 2020-04-15 09:00)
DX: K80.10 Calculus of gallbladder with chronic cholecystitis without obstruction (principal); Z20.822 Contact with and (suspected) exposure to COVID-19
CPT/HCPCS: 81025; 88304; 47562; U0002; J2704; J2250; J3010 ×2; J1100; J2710; J7120 ×2; J2405